=== PATIENT | male | born 1950 | race Caucasian/White ===

== ENCOUNTER → 2016-05-01 | Outpatient (CLI) | payer OTHER ==
[~2016-05-01] VITALS: Ht 172.7 cm; Wt 78.9 kg
[~2016-05-01] MED LIST: CALC600T57 PO; FAMO20TA PO; LIDOCAINE 2% INJ 100 MG/5 ML SDV (FOR ANES.) As Ordered ONE; MULT1TAB11 PO; NS 1,000 ML IV SCH; PROPOFOL 200 MG/20 ML VIAL As Ordered ONE; TUMS500C PO; fentaNYL 100 MCG/2 ML INJECTION (J3010) As Ordered ONE
--- NOTE | 2016-05-01 12:10 | ROOR ---
Patient Name: Jaswinder Colvin Procedure Date: 05/01/2016 11:48 AM Date of : 1950 Age: 65 Room: [facility] Gender: Male Note Status: Finalized Procedure: Upper GI endoscopy + Biopsies Indications: Heartburn, Abnormal UGI series Providers: Delmar Agosto MD Referring MD: ALEYDA BHATTI MD Requesting Provider: Medicines: Monitored Anesthesia Care Complications: No immediate complications. Procedure: Pre-Anesthesia Assessment: - The heart rate, respiratory rate, oxygen saturations, blood pressure, adequacy of pulmonary ventilation, and response to care were monitored throughout the procedure. The Endoscope was introduced through the mouth, and advanced to the second part of duodenum. The upper GI endoscopy was accomplished without difficulty. The patient tolerated the procedure well. Findings: The Z-line was variable and was found 35 cm from the incisors. Multiple biopsies were obtained with cold forceps for evaluation to rule out Salazar's Esophagus randomly at the gastroesophageal junction. A medium-sized hiatus hernia was present. No other significant abnormalities were identified in a careful examination of the stomach. The exam of the duodenum was otherwise normal. Impression: - Z-line variable, 35 cm from the incisors. - Medium-sized hiatus hernia. - Multiple biopsies were obtained at the gastroesophageal junction. - The examination was otherwise normal. Recommendation: - Patient has a contact number available for emergencies. The signs and symptoms of potential delayed complications were discussed with the patient. Return to normal activities tomorrow. Written discharge instructions were provided to the patient. - High fiber diet. - Discharge patient to home. - Follow an antireflux regimen. - Continue present medications. - Await pathology results. - Telephone GI clinic for pathology results in 1 week. - Return to referring physician. - The findings and recommendations were discussed with the patient's family. Delmar Agosto MD Delmar Agosto MD 05/01/2016 12:09:52 PM This report has been signed electronically. Number of Addenda: 0 Note Initiated On: 05/01/2016 11:48 AM Estimated Blood Loss: Estimated blood loss: none.
--- NOTE | 2016-05-01 12:32 | ROOR ---
Patient Name: Jaswinder Colvin Procedure Date: 05/01/2016 11:49 AM Date of : 1950 Age: 65 Room: [facility] Gender: Male Note Status: Finalized Procedure: Colonoscopy to Cecum Indications: Colon cancer screening in patient at increased risk: Colorectal cancer in mother Providers: Delmar Agosto MD Referring MD: ALEYDA BHATTI MD Requesting Provider: Medicines: Monitored Anesthesia Care Complications: No immediate complications. Procedure: Pre-Anesthesia Assessment: - The heart rate, respiratory rate, oxygen saturations, blood pressure, adequacy of pulmonary ventilation, and response to care were monitored throughout the procedure. The Colonoscope was introduced through the anus and advanced to the cecum, identified by appendiceal orifice and ileocecal valve. The colonoscopy was performed without difficulty. The patient tolerated the procedure well. The quality of the bowel preparation was excellent. Findings: The perianal and digital rectal examinations were normal. Non-bleeding internal hemorrhoids were found during retroflexion. The hemorrhoids were small and Grade I (internal hemorrhoids that do not prolapse). No other significant abnormalities were identified in a careful examination of the remainder of the colon. The exam was otherwise without abnormality on direct and retroflexion views. Impression: - Non-bleeding internal hemorrhoids. - The examination was otherwise normal on direct and retroflexion views. - No specimens collected. - The exam was otherwise normal to the cecum. Recommendation: - Patient has a contact number available for emergencies. The signs and symptoms of potential delayed complications were discussed with the patient. Return to normal activities tomorrow. Written discharge instructions were provided to the patient. - High fiber diet. - Discharge patient to home. - Continue present medications. - Repeat colonoscopy in 5 years for screening purposes. - Return to referring physician. - The findings and recommendations were discussed with the patient's family. Delmar Agosto MD Delmar Agosto MD 05/01/2016 12:31:55 PM This report has been signed electronically. Number of Addenda: 0 Note Initiated On: 05/01/2016 11:49 AM Estimated Blood Loss: Estimated blood loss: none.
[2016-05-01 12:50] VITALS: BP 117/80
== END ==
LOC: M OPP 09:35
PROVIDERS: ATTEND Internal Medicine Gastroenterology
DX: Z12.11 Encounter for screening for malignant neoplasm of colon (principal); K64.0 First degree hemorrhoids; Z80.0 Family history of malignant neoplasm of digestive organs; R93.3 Abnormal findings on diagnostic imaging of other parts of digestive tract; K22.8 Other specified diseases of esophagus; K44.9 Diaphragmatic hernia without obstruction or gangrene; K21.9 Gastro-esophageal reflux disease without esophagitis; R12 Heartburn; R06.83 Snoring; N40.0 Benign prostatic hyperplasia without lower urinary tract symptoms; M19.90 Unspecified osteoarthritis, unspecified site; Z86.19 Personal history of other infectious and parasitic diseases; Z79.899 Other long term (current) drug therapy
CPT/HCPCS: 43239; 45378; 88305; J3010

== ENCOUNTER → 2017-08-08 | Outpatient (REF) | payer OTHER | LOC: M LAB REF 13:29 | DX: D23.11 Other benign neoplasm of skin of right eyelid, including canthus (principal) | CPT/HCPCS: 88305 ==

== ENCOUNTER → 2018-12-18 | Outpatient (REF) | payer OTHER ==
[~2018-12-18] MED LIST changes: -LIDOCAINE 2% INJ 100 MG/5 ML SDV (FOR ANES.) As Ordered ONE; -NS 1,000 ML IV SCH; -PROPOFOL 200 MG/20 ML VIAL As Ordered ONE; -fentaNYL 100 MCG/2 ML INJECTION (J3010) As Ordered ONE
== END ==
LOC: M LAB LCGH 13:12
PROVIDERS: ATTEND Internal Medicine
DX: E04.1 Nontoxic single thyroid nodule (principal)